=== PATIENT | female | born 1975 | race Caucasian/White ===

== ENCOUNTER 2022-09-18 09:01 | Day surgery (SDC) | payer BC ==
[2022-09-16 10:15] VITALS: BMI 23.6
[~2022-09-18 09:01] MED LIST: LACTATED RINGERS SOLUTION 1,000 ML IV SCH; ONDANSETRON 4 MG/2 ML VIAL IVPUSH PRN; oxyCODONE HCL 5 MG TABLET PO PRN
[2022-09-18] MEDS ORDERED: BUPIVACAINE HCL 100 ML ONE (09:24)
[2022-09-18] MEDS ORDERED: ceFAZolin SODIUM 1 GM VIAL ONE ×2 (09:24→09:29)
[2022-09-18] MEDS ORDERED: LIDOCAINE 1%-EPI 1:100,000 30 ML MDV IJ ONE (09:24)
[2022-09-18] MEDS ORDERED: GENTAMICIN SO4 80 MG/2 ML VIAL ONE (09:24)
[2022-09-18] MEDS ORDERED: MIDAZOLAM HCL 2 MG/2 ML SINGLE DOSE VIAL ONE (09:28)
[2022-09-18] MEDS ORDERED: DEXAMETHASONE SOD PHOSPHATE 4 MG/1 ML VIAL ONE (09:29)
[2022-09-18] MEDS ORDERED: ONDANSETRON 4 MG/2 ML VIAL ONE (09:29)
[2022-09-18] MEDS ORDERED: GUM MASTIC/STORAX/MSAL/ALCOHOL 1 DRP DROPSBTL MC ONE (09:30)
[2022-09-18] MEDS ORDERED: PROPOFOL 40 ML ONE (09:30)
[2022-09-18] MEDS ORDERED: VANCOMYCIN 1,000 MG VIAL (RESTRICTED TO ID ONLY) ONE (10:45)
[2022-09-18] MEDS ORDERED: BUPIVACAINE HCL/EPINEPHRINE/PF 30 ML VIAL IJ ONE (10:46)
[2022-09-18] MEDS ORDERED: ACETAMINOPHEN INJECTION 100 ML IVPB ONE (11:31)
[2022-09-18] MEDS ORDERED: oxyCODONE HCL 5 MG TABLET PO PRN (13:05)
[2022-09-18] MEDS ORDERED: LACTATED RINGERS SOLUTION 1,000 ML IV SCH (13:15)
[2022-09-18 14:01] VITALS: RESP 18; TEMP 97.8
[2022-09-18 14:35] VITALS: BP 108/69; PULSE 68
== END 2022-09-18 14:15 | disposition home or self-care (01) ==
LOC: FASU 09:01
PROVIDERS: ATTEND Plastic Surgery
CPT/HCPCS: 81025; 88304-TC; 94760